=== PATIENT | male | born 1985 | race Caucasian/White ===

== ENCOUNTER 2018-10-09 18:28 | Emergency (ER) | payer SELFPAY ==
[~2018-10-09] VITALS: Ht 170.2 cm; Wt 73.6 kg
[2018-10-09 18:39] VITALS: Ht 170.2 cm; Wt 73.6 kg
[2018-10-09] MEDS ORDERED: NEURONTIN 300300 MG PO (20:22)
[2018-10-09] MEDS ORDERED: TORADOL10 MG PO (20:22)
[2018-10-09 20:39] VITALS: BP 128/97
== END 2018-10-09 20:40 | disposition home or self-care (01) ==
LOC: D.ER 18:28
DX: M54.16 Radiculopathy, lumbar region (principal); S63.502A Unspecified sprain of left wrist, initial encounter; X50.0XXA Overexertion from strenuous movement or load, initial encounter; F17.210 Nicotine dependence, cigarettes, uncomplicated

== ENCOUNTER 2019-09-23 14:43 | Emergency (ER) | payer SELFPAY ==
[~2019-09-23] VITALS: Ht 170.2 cm; Wt 84.5 kg
[~2019-09-23 14:43] MED LIST: NEURONTIN 300300 MG PO; TORADOL10 MG PO
[2019-09-23 14:44] VITALS: Ht 170.2 cm; Wt 84.5 kg
[2019-09-23] MEDS ORDERED: HYDROCODON-ACE1 EAC2 PO (16:31)
[2019-09-23] MEDS ORDERED: IBUPROFEN800 MG PO (16:31)
[2019-09-23 17:22] VITALS: BP 142/78
== END 2019-09-23 17:23 | disposition home or self-care (01) ==
LOC: D.ER 14:43
DX: S90.415A Abrasion, left lesser toe(s), initial encounter (principal); S50.812A Abrasion of left forearm, initial encounter; S80.812A Abrasion, left lower leg, initial encounter; S70.212A Abrasion, left hip, initial encounter; S42.009A Fracture of unspecified part of unspecified clavicle, initial encounter for closed fracture; V89.2XXA Person injured in unspecified motor-vehicle accident, traffic, initial encounter; Y93.9 Activity, unspecified; Y92.9 Unspecified place or not applicable